=== PATIENT | female | born 1945 | race Caucasian/White ===

== ENCOUNTER → 2017-03-12 | Outpatient (CLI) | payer OTHER ==
[~2017-03-12] MED LIST: ATI0.5 PO; DIA2.5 PO; GLU500 PO; LEXAPRO PO; SYN75 PO; ZOC10 PO
[2017-03-12 09:32] LABS: BASOPHIL % 0.3 % (0-2); PLATELET COUNT 228 x10^3mcL (130-400); RED CELL DISTRIBUTION WIDTH 13.6 % (11.5-14.5)
[2017-03-12 09:46] LABS: ALBUMIN 3.6 g/dL (3.4-5.0); BILIRUBIN TOTAL 0.3 mg/dL (0.20-1.00); CALCIUM 9.6 mg/dL (8.5-10.1); CARBON DIOXIDE 26.5 mmol/L (21-32); CHOLESTEROL/HDL RATIO 3.8; CREATININE SERUM 1.2 mg/dL (0.6-1.0); POTASSIUM SERUM 4.9 mmol/L (3.5-5.1); TOTAL PROTEIN, SERUM 7.6 g/dL (6.4-8.2)
[2017-03-12 10:13] LABS: T3 TOTAL 0.85 ng/mL
[2017-03-12 11:09] LABS: FREE T4 1.07 ng/dL (0.76-1.46); FREE THYROXINE INDEX 3.6 ug/dL (1.4-4.5)
== END | disposition home or self-care (01) ==
LOC: LB 09:01
PROVIDERS: Family Medicine
DX: E11.9 Type 2 diabetes mellitus without complications (principal); E03.9 Hypothyroidism, unspecified
CPT/HCPCS: 84439

== ENCOUNTER → 2017-07-03 | Outpatient (CLI) | payer OTHER ==
[2017-07-03 10:39] LABS: ALBUMIN 3.7 g/dL (3.4-5.0); BILIRUBIN TOTAL 0.38 mg/dL (0.20-1.00); CALCIUM 9.3 mg/dL (8.5-10.1); CARBON DIOXIDE 29.9 mmol/L (21-32); FREE T4 0.89 ng/dL (0.76-1.46); POTASSIUM SERUM 4.2 mmol/L (3.5-5.1); TOTAL PROTEIN, SERUM 8.1 g/dL (6.4-8.2)
[2017-07-03 10:44] LABS: UA SPECIFIC GRAVITY >=1.030 (1.005-1.035); microscopic required? YES; urine erythrocyte NEGATIVE (NEGATIVE)
== END | disposition home or self-care (01) ==
LOC: LB 08:30
PROVIDERS: Family Medicine
DX: E11.42 Type 2 diabetes mellitus with diabetic polyneuropathy (principal); E78.5 Hyperlipidemia, unspecified; E03.9 Hypothyroidism, unspecified; K21.9 Gastro-esophageal reflux disease without esophagitis
CPT/HCPCS: 84439

== ENCOUNTER 2017-09-23 20:36 | Emergency (ER) | payer OTHER ==
[~2017-09-23] VITALS: Ht 162.6 cm; Wt 86.2 kg
[2017-09-23 20:41] VITALS: Ht 162.6 cm; Wt 86.2 kg
[2017-09-23 23:28] VITALS: BP 118/74
== END 2017-09-23 23:29 | disposition home or self-care (01) ==
LOC: ED 20:36
DX: S62.102A Fracture of unspecified carpal bone, left wrist, initial encounter for closed fracture (principal); E11.9 Type 2 diabetes mellitus without complications; M25.512 Pain in left shoulder; Z88.2 Allergy status to sulfonamides; W18.39XA Other fall on same level, initial encounter; Y93.9 Activity, unspecified; Y92.89 Other specified places as the place of occurrence of the external cause; Y99.8 Other external cause status
CPT/HCPCS: J1170; J2405; Q0092

== ENCOUNTER 2017-10-04 09:43 | Inpatient (IN) | payer OTHER ==
[~2017-10-04] VITALS: Ht 162.6 cm; Wt 97.7 kg
[2017-10-04 09:50] VITALS: Ht 162.6 cm; Wt 97.7 kg
[2017-10-04 10:39] LABS: BASOPHIL % 0.1 % (0-2); PLATELET COUNT 273 x10^3mcL (130-400); RED CELL DISTRIBUTION WIDTH 13.5 % (11.5-14.5)
[2017-10-04 10:51] LABS: CARBON DIOXIDE 31.1 mmol/L (21-32); POTASSIUM SERUM 4.9 mmol/L (3.5-5.1)
[2017-10-04] MEDS ORDERED: GLIPIZIDE5 M2 PO (11:07)
[2017-10-04] MEDS ORDERED: CARVEDILOL3.125 M1 PO (11:09)
[2017-10-04] MEDS ORDERED: JANUMET PO (11:10)
[2017-10-04] MEDS ORDERED: BUPROPION HCL150 M1 PO (11:10)
[2017-10-04] MEDS ORDERED: NEU300 PO (11:11)
[2017-10-04] MEDS ORDERED: VITAMIN B121000 MCG PO (11:13)
[2017-10-04] MEDS ORDERED: ASPIR 8181 MG PO (11:13)
[2017-10-04] MEDS ORDERED: LOSARTAN POTASS25 M1 PO (11:13)
[2017-10-04] MEDS ORDERED: INSN SC (11:14)
[2017-10-04 11:51] LABS: PHOSPHOROUS 3.8 mg/dL (2.5-4.9)
[2017-10-04 11:54] VITALS: BP 151/93
[2017-10-04 12:02] LABS: T3 TOTAL 1.02 ng/mL
[2017-10-04 14:30] LABS: FREE T4 1.19 ng/dL (0.76-1.46); FREE THYROXINE INDEX 3.5 ug/dL (1.4-4.5); T4(THYROXINE) 9.8 ug/dL (4.7-13.3)
[2017-10-04 17:41] VITALS: BP 100/57
[2017-10-04 21:15] VITALS: BP 113/60
[2017-10-04 21:17] LABS: UA SPECIFIC GRAVITY 1.015 (1.005-1.035); microscopic required? YES; urine erythrocyte NEGATIVE (NEGATIVE)
[2017-10-05 06:04] LABS: BASOPHIL % 0.6 % (0-2); PLATELET COUNT 225 x10^3mcL (130-400); RED CELL DISTRIBUTION WIDTH 13.8 % (11.5-14.5)
[2017-10-05 07:03] LABS: CALCIUM 8.9 mg/dL (8.5-10.1); CARBON DIOXIDE 26.5 mmol/L (21-32); CREATININE SERUM 1.1 mg/dL (0.6-1.0); MAGNESIUM 1.9 mg/dL (1.8-2.4); PHOSPHOROUS 3.7 mg/dL (2.5-4.9); POTASSIUM SERUM 4.6 mmol/L (3.5-5.1)
[2017-10-05 08:18] VITALS: BP 128/73
[2017-10-05 17:09] LABS: IRON 60 ug/dL (50-170); TOTAL IRON BINDING CAPACITY 274 ug/dL (250-450)
[2017-10-05 17:22] LABS: RED BLOOD CELLS 3.87 M/mm3 (4.10-5.10)
[2017-10-05 18:05] VITALS: BP 145/79
[2017-10-05 21:44] VITALS: BP 134/76
[2017-10-06 04:25] VITALS: BP 123/63
[2017-10-06 06:44] LABS: CALCIUM 8.7 mg/dL (8.5-10.1); CARBON DIOXIDE 24.8 mmol/L (21-32); MAGNESIUM 1.7 mg/dL (1.8-2.4); PHOSPHOROUS 2.8 mg/dL (2.5-4.9); POTASSIUM SERUM 4.4 mmol/L (3.5-5.1)
[2017-10-06] MEDS ORDERED: NOR10T PO (07:08)
[2017-10-06] MEDS ORDERED: LAC PO (07:10)
[2017-10-06] MEDS ORDERED: COLACE100 MG PO (07:10)
[2017-10-06] MEDS ORDERED: LEVAQUIN750 MG PO (07:10)
[2017-10-06 07:28] LABS: BASOPHIL % 0.3 % (0-2); PLATELET COUNT 214 x10^3mcL (130-400); RED CELL DISTRIBUTION WIDTH 13.6 % (11.5-14.5)
[2017-10-06 09:50] VITALS: BP 124/69
[2017-10-06 10:20] VITALS: BP 124/69
== END 2017-10-06 13:10 | disposition home or self-care (01) | DRG 511 ==
LOC: ED 09:43 → DU 10:45
PROVIDERS: Emergency Medicine; Family Medicine; Family Medicine Sports Medicine; Neuromusculoskeletal Medicine, Sports Medicine
PROC: 0PSL35Z Reposition Left Ulna with External Fixation Device, Percutaneous Approach (ICD-10-PCS; 2017-10-05)
PROC: 0PSJ35Z Reposition Left Radius with External Fixation Device, Percutaneous Approach (ICD-10-PCS; principal; 2017-10-05 10:30)
DX: S52.572A Other intraarticular fracture of lower end of left radius, initial encounter for closed fracture (principal); N39.0 Urinary tract infection, site not specified; S62.102A Fracture of unspecified carpal bone, left wrist, initial encounter for closed fracture; S52.612A Displaced fracture of left ulna styloid process, initial encounter for closed fracture; W18.39XA Other fall on same level, initial encounter; E11.65 Type 2 diabetes mellitus with hyperglycemia; F41.1 Generalized anxiety disorder; E11.42 Type 2 diabetes mellitus with diabetic polyneuropathy; E03.9 Hypothyroidism, unspecified; F32.9 Major depressive disorder, single episode, unspecified; Y93.89 Activity, other specified; Y92.89 Other specified places as the place of occurrence of the external cause; Y99.8 Other external cause status; Z88.2 Allergy status to sulfonamides; Z82.49 Family history of ischemic heart disease and other diseases of the circulatory system; Z82.3 Family history of stroke
CPT/HCPCS: 82962; 83880; 84439; C1713; J0690; J1644; J1815; J1885; J1956; J2175; J2250; J2270; J2405; J2704; J3010; J3490; J7030; Q0092

== ENCOUNTER → 2017-10-30 | Outpatient (CLI) | payer OTHER ==
[~2017-10-30] MED LIST changes: +ASPIR 8181 MG PO; +BUPROPION HCL150 M1 PO; +CARVEDILOL3.125 M1 PO; +COLACE100 MG PO; +GLIPIZIDE5 M2 PO; +INSN SC; +JANUMET PO; +LAC PO; +LEVAQUIN750 MG PO; +LOSARTAN POTASS25 M1 PO; +NEU300 PO; +NOR10T PO; +VITAMIN B121000 MCG PO
== END | disposition home or self-care (01) ==
LOC: RD 14:01
DX: S62.102D Fracture of unspecified carpal bone, left wrist, subsequent encounter for fracture with routine healing (principal); X58.XXXD Exposure to other specified factors, subsequent encounter

== ENCOUNTER → 2018-05-07 | Outpatient (CLI) | payer OTHER ==
[2018-05-07 08:50] LABS: BASOPHIL % 0.4 % (0-2); PLATELET COUNT 251 x10^3mcL (130-400); RED CELL DISTRIBUTION WIDTH 13.6 % (11.5-14.5)
[2018-05-07 09:16] LABS: ALBUMIN 3.6 g/dL (3.4-5.0); BILIRUBIN TOTAL 0.3 mg/dL (0.20-1.00); CALCIUM 9.3 mg/dL (8.5-10.1); CARBON DIOXIDE 26.6 mmol/L (21-32); CHOLESTEROL/HDL RATIO 3.9; CREATININE SERUM 1.1 mg/dL (0.6-1.0); FREE T4 1.06 ng/dL (0.76-1.46); POTASSIUM SERUM 4.9 mmol/L (3.5-5.1); TOTAL PROTEIN, SERUM 7.9 g/dL (6.4-8.2)
== END | disposition home or self-care (01) ==
LOC: LB 08:32
PROVIDERS: Student in an Organized Health Care Education/Training Program
DX: E03.9 Hypothyroidism, unspecified (principal); E11.9 Type 2 diabetes mellitus without complications; I10 Essential (primary) hypertension; E78.5 Hyperlipidemia, unspecified
CPT/HCPCS: 84439

== ENCOUNTER → 2019-01-07 | Outpatient (CLI) | payer OTHER ==
[2019-01-07 09:52] LABS: ALBUMIN 3.9 g/dL (3.4-5.0); ALKALINE PHOSPHATASE 86 U/L (46-116); ALT/SGPT 27 U/L (14-59); AST/SGOT 15 U/L (15-37); CALCIUM 10.3 mg/dL (8.5-10.1); CHLORIDE SERUM 98 mmol/L (98-107); CHOLESTEROL 172 mg/dL (<200); CHOLESTEROL/HDL RATIO 3.4; GLUCOSE SERUM 193 mg/dL (74-106); HDL CHOLESTEROL 50 mg/dL (40-60); POTASSIUM SERUM 4.3 mmol/L (3.5-5.1); SODIUM SERUM 125 mmol/L (136-145); TOTAL PROTEIN, SERUM 7.7 g/dL (6.4-8.2); TRIGLYCERIDES 131 mg/dL (<150)
[2019-01-07 11:30] LABS: BASOPHIL % 0.5 % (0-2); PLATELET COUNT 242 x10^3mcL (130-400); RED CELL DISTRIBUTION WIDTH 13.8 % (11.5-14.5)
[2019-01-08 08:20] LABS: microalbumin:creatinine ratio < 2.9 (0.0-30.0)
== END | disposition home or self-care (01) ==
LOC: LB 08:47
DX: I10 Essential (primary) hypertension (principal); E78.5 Hyperlipidemia, unspecified; E11.9 Type 2 diabetes mellitus without complications

== ENCOUNTER → 2019-03-21 | Outpatient (CLI) | payer OTHER ==
[2019-03-21 09:21] LABS: BASOPHIL % 0.1 % (0-2); PLATELET COUNT 263 x10^3mcL (130-400); RED CELL DISTRIBUTION WIDTH 13.7 % (11.5-14.5)
[2019-03-21 09:39] LABS: ALBUMIN 3.9 g/dL (3.4-5.0); ALKALINE PHOSPHATASE 96 U/L (46-116); ALT/SGPT 24 U/L (14-59); AST/SGOT 11 U/L (15-37); BILIRUBIN DIRECT 0.09 mg/dL (0.0-0.2); BILIRUBIN TOTAL 0.33 mg/dL (0.20-1.00); CALCIUM 9.9 mg/dL (8.5-10.1); CARBON DIOXIDE 25.6 mmol/L (21-32); CHLORIDE SERUM 102 mmol/L (98-107); CHOLESTEROL 183 mg/dL (<200); CREATININE SERUM 1.3 mg/dL (0.6-1.0); FREE T4 1.02 ng/dL (0.76-1.46); GLUCOSE SERUM 203 mg/dL (74-106); HDL CHOLESTEROL 46 mg/dL (40-60); SODIUM SERUM 138 mmol/L (136-145); TOTAL PROTEIN, SERUM 8.2 g/dL (6.4-8.2); TRIGLYCERIDES 134 mg/dL (<150)
[2019-03-22 08:06] LABS: microalbumin:creatinine ratio 14.6 (0.0-30.0)
== END | disposition home or self-care (01) ==
LOC: LB 08:42
PROVIDERS: Internal Medicine
DX: Z00.00 Encounter for general adult medical examination without abnormal findings (principal)
CPT/HCPCS: 84439

== ENCOUNTER → 2019-09-12 | Outpatient (CLI) | payer OTHER ==
[2019-09-12 09:36] LABS: BASOPHIL % 0.2 % (0-2); PLATELET COUNT 269 x10^3mcL (130-400); RED CELL DISTRIBUTION WIDTH 13.6 % (11.5-14.5)
[2019-09-12 10:33] LABS: CARBON DIOXIDE 26.4 mmol/L (21-32); CHLORIDE SERUM 100 mmol/L (98-107); GLUCOSE SERUM 245 mg/dL (74-106); POTASSIUM SERUM 4.7 mmol/L (3.5-5.1); SODIUM SERUM 138 mmol/L (136-145)
[2019-09-12 10:34] LABS: ALT/SGPT 31 U/L (14-59); AST/SGOT 16 U/L (15-37); BILIRUBIN DIRECT 0.06 mg/dL (0.0-0.2); BILIRUBIN TOTAL 0.4 mg/dL (0.20-1.00); CALCIUM 9.7 mg/dL (8.5-10.1); CREATININE SERUM 1.1 mg/dL (0.6-1.0); TOTAL PROTEIN, SERUM 8.1 g/dL (6.4-8.2)
[2019-09-12 10:35] LABS: ALKALINE PHOSPHATASE 86 U/L (46-116); CHOLESTEROL 171 mg/dL (<200); CHOLESTEROL/HDL RATIO 3.9; HDL CHOLESTEROL 44 mg/dL (40-60); TRIGLYCERIDES 161 mg/dL (<150)
[2019-09-12 11:39] LABS: FREE T4 0.96 ng/dL (0.76-1.46)
== END | disposition home or self-care (01) ==
LOC: LB 09:06
PROVIDERS: Internal Medicine
DX: Z00.00 Encounter for general adult medical examination without abnormal findings (principal)
CPT/HCPCS: 84439

== ENCOUNTER 2019-10-22 09:14 | Emergency (ER) | payer OTHER ==
[~2019-10-22] VITALS: Ht 170.2 cm; Wt 101.6 kg
[2019-10-22 09:40] VITALS: BP 131/68; Ht 170.2 cm; Wt 101.6 kg
== END 2019-10-22 10:29 | disposition home or self-care (01) ==
LOC: ED 09:14
DX: T23.022A Burn of unspecified degree of single left finger (nail) except thumb, initial encounter (principal); E11.9 Type 2 diabetes mellitus without complications; Z88.2 Allergy status to sulfonamides; X08.8XXA Exposure to other specified smoke, fire and flames, initial encounter; Y93.89 Activity, other specified; Y92.89 Other specified places as the place of occurrence of the external cause; Y99.8 Other external cause status